=== PATIENT | female | born 1965 | race Caucasian/White ===

== ENCOUNTER 2019-04-08 12:33 | Emergency (ER) | payer MEDICARE ==
--- NOTE | 2019-04-08 13:48 | ED ---
Bite Injury/Animal - HPI Summary HPI Summary: This patient is a 53-year-old female presenting to the ED with a laceration to the middle and ring finger on the right hand from a dog bite. She states she was attempting to break up her 2 dogs that were fighting and cut a tooth between this area. Denies any crush injury. Able to move all extremities well without limitation. Denies any bruising. Minimal bleeding. Pt on coumadin. Denies this happening in the past. Laceration measures .7cm in length and is superficial. - History of Current Complaint Chief Complaint: EDAnimalBite Stated Complaint: DOG BITE HAND Time Seen by Provider: 04/08/19 12:59 Hx Obtained From: Patient Onset of Injury: Happened hours ago Type of Bite: Animal Hx of Bite: Provoked by: - fight between 2 dogs Severity Initially: Moderate Severity Currently: Moderate Pain Intensity: 5 Pain Scale Used: 0-10 Numeric Character: Abrasion/Laceration Aggravating Factor(s): Nothing Alleviating Factor(s): Nothing Associated Signs And Symptoms: Positive: Negative Animal Available for Observation: Yes Animal Control Notified: Yes - Risk Factors Infection/Sepsis Risk Factors: Negative - Allergies/Home Medications Allergies/Adverse Reactions: Allergies Allergy/AdvReac Type Severity Reaction Status Date / Time MS Vancomycin [Vancomycin] Allergy Unknown Hives Verified 04/08/19 12:38 Adhesive Tape Allergy Redness Verified 04/08/19 12:38 MS Amoxicillin [Amoxicillin] Allergy Hives Verified 04/08/19 12:38 MS Aspirin [Aspirin] Allergy Hives Verified 04/08/19 12:38 MS Erythromycin Allergy Hives Verified 04/08/19 12:38 [Erythromycin] MS Moxifloxacin [From Avelox] Allergy Hives Verified 04/08/19 12:38 MS NSAIDs [NSAIDs] Allergy Hives Verified 04/08/19 12:38 MS Sulfa Antibiotics Allergy Hives Verified 04/08/19 12:38 [Sulfa Antibiotics] Environmental/Seasonal Allergy Itchy Uncoded 04/08/19 12:38 Hayfever Watery Eyes, Sneezing, Coughing Home Medications: Home Medications Acetaminophen with Codeine [Acetaminophen-Cod #3 Tablet] 1 each PO DAILY PRN [History Confirmed 04/08/19] Albuterol 2.5MG/3ML (0.083%)* [Ventolin 2.5 MG/3 ML NEB.TRACI*] 2.5 mg INH Q4H PRN 04/08/19 [History Confirmed 04/08/19] Calcium Carbonate TAB* 1,200 mg PO DAILY 04/08/19 [History Confirmed 04/08/19] Cetirizine* [ZyrTEC 10 MG TAB*] 10 mg PO DAILY 04/08/19 [History Confirmed 04/08] Cholecalciferol CAP/TAB(NF) [Vitamin D3 CAP/TAB (NF)] 1,000 unit PO BEDTIME [History Confirmed 04/08/19] Pantoprazole TAB * [Protonix TAB*] 40 mg PO DAILY 04/08/19 [History Confirmed ] Simvastatin (NF) [Zocor (NF)] 40 mg PO DAILY 04/08/19 [History Confirmed ] Torsemide TAB* [Demadex*] 20 mg PO DAILY 04/08/19 [History Confirmed 04/08/19] PMH/Surg Hx/FS Hx/Imm Hx Previously Healthy: Yes Endocrine/Hematology History: Reports: Hx Thyroid Disease - HYPOTHYROIDSIM Denies: Hx Diabetes Cardiovascular History: Reports: Hx Congestive Heart Failure, Hx Coronary Artery Disease, Hx Hypercholesterolemia, Hx Hypertension, Hx Valvular Heart Disease - TRICUSPID VALVE AND MITRAL VALVE REPAIR, 2012, Other Cardiovascular Problems/Disorders - ASD AND VSD REPAIR AGE 15 FIRST ONE Denies: Hx Pacemaker/ICD Respiratory History: Reports: Hx Asthma - USE PRN INHALER, Hx Sleep Apnea GI History: Reports: Hx Crohn's Disease - HX OF YEARS AGO, NO PROBLEMS NOW, Hx Gastroesophageal Reflux Disease - CONTROL WITH MEDS, Other GI Disorders - 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 2003 LAPAROSCOPIC CHOLECYSTECTOMY, [facility]. 2011 LAPAROSCOPIC APPENDECTOMY, [facility]. OPEN HEART- VSB REPAIRED & TRICUSPID REPAIR (1980([facility]) & 10/2012), [facility]-STERNAL WIRES. 1998 RIGHT CARPAL TUNNEL RELEASE, [facility]. 1983 C SECTION, [facility]. 1991 BILATERAL TUBAL LIGATION, [facility]. 07/2014 LEFT SHOULDER - [place]ROS[place] [facility] [place] NEW LIGAMENT ON LEFT ANKLE ON INSIDE-OUTSIDE REPAIRED LIGAMENT 04/2015 Hx Anesthesia Reactions: No - Immunization History Date of Tetanus Vaccine: 2011 Hx Pertussis Vaccination: No Immunizations Up to Date: Yes Infectious Disease History: Yes Infectious Disease History: Denies: Traveled Outside the [place] in Last 30 Days - Social History Occupation: Employed Full-time Lives: With Family Alcohol Use: Occasionally Hx Substance Use: No Substance Use Type: Reports: None Hx Tobacco Use: Yes Smoking Status (MU): Former Smoker Type: Cigarettes Amount Used/How Often: 3 CIGARETTES PER DAY - USING CHANTIX NOW Length of Time of Smoking/Using Tobacco: 5 YEARS ON AND OFF Have You Smoked in the Last Year: Yes Review of Systems Negative: Fever, Chills, Fatigue, Skin Diaphoresis Negative: Palpitations, Chest Pain Negative: Shortness Of Breath, Cough Genitourinary: Negative Positive: no symptoms reported, see HPI Negative: Arthralgia, Myalgia Positive: Other - .7cm laceration Neurological: Negative All Other Systems Reviewed And Are Negative: Yes Physical Exam Triage Information Reviewed: Yes Vital Signs On Initial Exam: Initial Vitals Temp Pulse Resp BP Pulse Ox 97.4 F 65 15 150/95 97 04/08/19 12:36 04/08/19 12:36 04/08/19 12:36 04/08/19 12:36 04/08/19 12:36 Vital Signs Reviewed: Yes Appearance: Positive: Well-Appearing, Well-Nourished Skin: Positive: Skin Color Reflects Adequate Perfusion, Other - .7cm laceration between middle and ring finger on R hand Head/Face: Positive: Normal Head/Face Inspection Eyes: Positive: EOMI, HANNA, Conjunctiva Clear Neck: Positive: Supple, Nontender, No Lymphadenopathy Respiratory/Lung Sounds: Positive: Clear to Auscultation, Breath Sounds Present Cardiovascular: Positive: RRR, Pulses are Symmetrical in both Upper and Lower Extremities Musculoskeletal: Positive: Strength/ROM Intact Neurological: Positive: Speech Normal Psychiatric: Positive: Affect/Mood Appropriate Procedures - Sedation Patient Received Moderate/Deep Sedation with Procedure: No Diagnostics - Vital Signs Vital Signs Temp Pulse Resp BP Pulse Ox 12/27/19 13:00 97.7 F 68 16 151/80 98 04/08/19 12:36 97.4 F 65 15 150/95 97 - Laboratory Lab Statement: Any lab studies that have been ordered have been reviewed, and results considered in the medical decision making process. Bite Injury Course/Dx - Course Course Of Treatment: Patient arrives with a 0.7 cm laceration between the third and ring finger on the right hand from trying to break up a dog fight between her 2 dogs. Both are up-to-date with their vaccinations. Tetanus is up-to- date. Cleanse wound thoroughly, 2 sutures placed using 4-0 Prolene after anesthetized locally with lidocaine without epi. Gauze wrapped. Patient will have sutures removed in 5-7 days. Doxycycline twice daily 3 days given prophylactically. - Diagnoses Differential Diagnosis/HQI/PQRI: Positive: Laceration, Puncture, Superficial Infection Provider Diagnosis: Dog bite, Laceration Discharge ED - Sign-Out/Discharge Documenting (check all that apply): Patient Departure - Discharge Plan Condition: Stable Disposition: HOME Prescriptions: DOXYcycline CAP(*) [DOXYcycline 100MG CAP(*)] 100 mg PO BID #6 cap Patient Education Materials: Animal Bite (ED), Laceration (ED) Referrals: Rich Hernandez DO [Primary Care Provider] - Additional Instructions: Suture removal in 5-7 days Keep the area covered x 24 hours You may then take off bandage, wash very gently and reapply a bandage After 48 hours, you can leave open to air providing you do not stretch out your hand - as the sutures may break - Billing Disposition and Condition Condition: STABLE Disposition: Home - Attestation Statements Provider Attestation: I was available for consultation for this patient. I did not evaluate the patient or participate in any medical decision making or disposition decisions unless I am specifically named in the chart as having consulted on the patient. If I have consulted on the patient, please see my own ED note on the patient encounter. Nel Cuellar MD
[2019-04-08 14:03] VITALS: BP 133/80
== END 2019-04-08 14:02 | disposition home or self-care (01) ==
LOC: ED 12:33
DX: S61.252A Open bite of right middle finger without damage to nail, initial encounter (principal); S61.254A Open bite of right ring finger without damage to nail, initial encounter; W54.0XXA Bitten by dog, initial encounter; Y92.009 Unspecified place in unspecified non-institutional (private) residence as the place of occurrence of the external cause; E03.9 Hypothyroidism, unspecified; I11.0 Hypertensive heart disease with heart failure; I50.9 Heart failure, unspecified; I25.10 Atherosclerotic heart disease of native coronary artery without angina pectoris; E78.00 Pure hypercholesterolemia, unspecified; J45.909 Unspecified asthma, uncomplicated; K50.90 Crohn's disease, unspecified, without complications; K21.9 Gastro-esophageal reflux disease without esophagitis; F41.9 Anxiety disorder, unspecified; F32.9 Major depressive disorder, single episode, unspecified; Z87.891 Personal history of nicotine dependence; Z79.899 Other long term (current) drug therapy; Z88.0 Allergy status to penicillin; Z88.1 Allergy status to other antibiotic agents; Z88.2 Allergy status to sulfonamides; Z88.8 Allergy status to other drugs, medicaments and biological substances
CPT/HCPCS: 12001; 99282

== ENCOUNTER 2019-05-01 14:43 | Emergency (ER) | payer MEDICARE ==
--- NOTE | 2019-05-01 16:08 | ED ---
Abdominal Pain/Female - HPI Summary HPI Summary: 53 year old female presents to the ED with a chief complaint of sudden abdominal pain starting last night. Patient was taking medications when she suddenly had a severe pain in her abdomen. She also reports nausea and vomiting. She denies dysuria. Her last BM was minutes [employer]. Patient has had cholecystectomy, appendectomy, and hysterectomy. Patient is a former smoker, quitting now using Chantix. Home Medications Medication Instructions Recorded Confirmed Type Docusate CAP* [Colace Cap*] 200 mg PO DAILY 11/12/12 04/08/19 History FLUoxetine CAP* [Prozac CAP*] 40 mg PO QAM 11/12/12 04/08/19 History Multivitamins/Minerals TAB* 1 tab PO QAM 11/12/12 04/08/19 History [Theragran/minerals TAB*] Warfarin TAB(*) [Coumadin(*)] 5 mg PO DAILY 11/12/12 04/08/19 History clonazePAM TAB(*) [KlonoPIN TAB(*)] 0.5 mg PO BEDTIME PRN 11/12/12 04/08/19 History Levothyroxine TAB* [Synthroid TAB*] 50 mcg PO QAM 07/12/14 04/08/19 History Metoclopramide HCl [Reglan] 5 mg PO TID AC 07/12/14 04/08/19 History Montelukast Sodium TAB* [Singulair 10 mg PO BEDTIME 07/12/14 04/08/19 History TAB*] Spironolactone TAB* [Aldactone 50 mg PO QAM 07/12/14 04/08/19 History TAB*] Varenicline 0.5 mg Tab(Nf) 1 mg PO BID 07/12/14 04/08/19 History [Chantix] Acetaminophen with Codeine 1 each PO DAILY PRN 04/08/19 04/08/19 History [Acetaminophen-Cod #3 Tablet] Albuterol 2.5MG/3ML (0.083%)* 2.5 mg INH Q4H PRN 04/08/19 04/08/19 History [Ventolin 2.5 MG/3 ML NEB.TRACI*] Calcium Carbonate TAB* 1,200 mg PO DAILY 04/08/19 04/08/19 History Cetirizine* [ZyrTEC 10 MG TAB*] 10 mg PO DAILY 04/08/19 04/08/19 History Cholecalciferol CAP/TAB(NF) 1,000 unit PO BEDTIME 04/08/19 04/08/19 History [Vitamin D3 CAP/TAB (NF)] DOXYcycline CAP(*) [DOXYcycline 100 mg PO BID #6 cap 04/08/19 Rx 100MG CAP(*)] Pantoprazole TAB * [Protonix TAB*] 40 mg PO DAILY 04/08/19 04/08/19 History Simvastatin (NF) [Zocor (NF)] 40 mg PO DAILY 04/08/19 04/08/19 History Torsemide TAB* [Demadex*] 20 mg PO DAILY 04/08/19 04/08/19 History - History of Current Complaint Chief Complaint: EDAbdPain Stated Complaint: NAUSEA/VOMITING PER PT Time Seen by Provider: 05/01/19 15:49 Hx Obtained From: Patient ?: No Onset/Duration: Sudden Onset, Lasting Hours Timing: Constant Severity Initially: Severe Severity Currently: Moderate Pain Intensity: 6 Pain Scale Used: 0-10 Numeric Location: Diffuse Radiates: No Aggravating Factor(s): Nothing Alleviating Factor(s): Nothing Associated Signs and Symptoms: Positive: Nausea, Vomiting Allergies/Adverse Reactions: Allergies Allergy/AdvReac Type Severity Reaction Status Date / Time Adhesive Tape Allergy Redness Verified 05/01/19 14:54 amoxicillin Allergy Hives Verified 05/01/19 14:54 aspirin Allergy Hives Verified 05/01/19 14:54 erythromycin base Allergy Hives Verified 05/01/19 14:54 [From Erythrocin] moxifloxacin [From Avelox] Allergy Hives Verified 05/01/19 14:54 Sulfa (Sulfonamide Allergy Hives Verified 05/01/19 14:54 Antibiotics) vancomycin [From Vancocin] Allergy Hives Verified 05/01/19 14:54 Environmental/Seasonal Allergy Itchy Uncoded 05/01/19 14:54 Hayfever Watery Eyes, Sneezing, Coughing PMH/Surg Hx/FS Hx/Imm Hx Endocrine/Hematology History: Reports: Hx Thyroid Disease - HYPOTHYROIDSIM Denies: Hx Diabetes Cardiovascular History: Reports: Hx Congestive Heart Failure, Hx Coronary Artery Disease, Hx Hypercholesterolemia, Hx Hypertension, Hx Valvular Heart Disease - TRICUSPID VALVE AND MITRAL VALVE REPAIR, 2012, Other Cardiovascular Problems/Disorders - ASD AND VSD REPAIR AGE 15 FIRST ONE Denies: Hx Pacemaker/ICD Respiratory History: Reports: Hx Asthma - USE PRN INHALER, Hx Sleep Apnea GI History: Reports: Hx Crohn's Disease - HX OF YEARS AGO, NO PROBLEMS NOW, Hx Gastroesophageal Reflux Disease - CONTROL WITH MEDS, Other GI Disorders - 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 2003 LAPAROSCOPIC CHOLECYSTECTOMY, [facility]. 2011 LAPAROSCOPIC APPENDECTOMY, [facility]. OPEN HEART- VSB REPAIRED & TRICUSPID REPAIR (1980([facility]) & 10/2012), [facility]-STERNAL WIRES. 1998 RIGHT CARPAL TUNNEL RELEASE, [facility]. 1983 C SECTION, [facility]. 1991 BILATERAL TUBAL LIGATION, [place]. 07/2014 LEFT SHOULDER - ARTHROSCOPIC SURGERY, [facility] [place]. NEW LIGAMENT ON LEFT ANKLE ON INSIDE-OUTSIDE REPAIRED LIGAMENT 04/2015 Hx Anesthesia Reactions: No - Immunization History Date of Tetanus Vaccine: 2011 Infectious Disease History: No Infectious Disease History: Denies: Traveled Outside the [place] in Last 30 Days - Social History Alcohol Use: None Hx Substance Use: No Substance Use Type: Reports: None Hx Tobacco Use: Yes Smoking Status (MU): Former Smoker Type: Cigarettes Amount Used/How Often: 3 CIGARETTES PER DAY - USING CHANTIX NOW Length of Time of Smoking/Using Tobacco: 5 YEARS ON AND OFF Have You Smoked in the Last Year: Yes Review of Systems Negative: Fever Positive: Abdominal Pain, Vomiting, Nausea Negative: dysuria All Other Systems Reviewed And Are Negative: Yes Physical Exam - Summary Physical Exam Summary: Appearance: The patient is well-nourished in no acute distress and in no acute pain. Skin: The skin is warm and dry, and skin color reflects adequate perfusion. HEENT: The head is normocephalic and atraumatic. The pupils are equal and reactive. The conjunctivae are clear and without drainage. Nares are patent and without drainage. Mouth reveals moist mucous membranes, and the throat is without erythema and exudate. The external ears are intact. The ear canals are patent and without drainage. The tympanic membranes are intact. Neck: The neck is supple with full range of motion and non-tender. There are no carotid bruits. There is no neck vein distension. Respiratory: Chest is non-tender. Lungs are clear to auscultation and breath sounds are symmetrical and equal. Cardiovascular: Heart is regular rate and rhythm. There is no murmur or rub auscultated. There is no peripheral edema and pulses are symmetrical and equal. Abdomen: The abdomen is soft. There are normal bowel sounds heard in all four quadrants and there is no organomegaly palpated. Epigastric tenderness. Musculoskeletal: There is no back tenderness noted. Extremities are non-tender with full range of motion. There is good capillary refill. There is no peripheral edema or calf tenderness elicited. Neurological: Patient is alert and oriented to person, place and time. The patient has symmetrical motor strength in all four extremities. Cranial nerves are grossly intact. Deep tendon reflexes are symmetrical and equal in all four extremities. Psychiatric: The patient has an appropriate affect and does not exhibit any anxiety or depression. Triage Information Reviewed: Yes Vital Signs On Initial Exam: Initial Vitals Temp Pulse Resp BP Pulse Ox 97.0 F 69 16 120/78 96 05/01/19 14:43 05/01/19 14:43 05/01/19 14:43 05/01/19 14:43 05/01/19 14:43 Vital Signs Reviewed: Yes Procedures - Sedation Patient Received Moderate/Deep Sedation with Procedure: No Diagnostics - Vital Signs Vital Signs Temp Pulse Resp BP Pulse Ox 05/01/19 14:43 97.0 F 69 16 120/78 96 - Laboratory Result Diagrams: 05/01/19 17:14 05/01/19 17:14 Lab Statement: Any lab studies that have been ordered have been reviewed, and results considered in the medical decision making process. - EKG 1512 Cardiac Rate: NL - 67 bpm EKG Rhythm: Sinus Rhythm Ectopy: None EKG Comparison: No Significant Change Summary of EKG Findings: EKG at 1512 shows normal sinus rhythm at 67 bpm. No significant change from 06/07/13. An ED physician has reviewed and interpreted this report. Abdominal Pain Fem Course/Dx - Course Course Of Treatment: Ms. Lopez presented with the fairly sudden onset of epigastric pain this morning. She is class II obese and is status post cholecystectomy, appendicitis and hysterectomy. Labs did show a leukocytosis of 15,000 with a negative urine. CT scan was unremarkable for acute pathology. She was given IV Protonix and got significant relief of her pain. I will treat her with twice a day Prilosec and close follow-up with her PCP. - Diagnoses Provider Diagnoses: Epigastric pain Discharge ED - Sign-Out/Discharge Documenting (check all that apply): Patient Departure - discharge home - Discharge Plan Condition: Stable Disposition: HOME Patient Education Materials: Epigastric Pain (ED) Referrals: Rich Hernandez, DO [Primary Care Provider] - Additional Instructions: Follow up with your primary care provider within 7 days. Return to the ED if you experience new or worsened symptoms. - Billing Disposition and Condition Condition: STABLE Disposition: Home - Attestation Statements Document Initiated by Scribe: Yes Documenting Scribe: Kam Walsh Provider For Whom Scribe is Documenting (Include Credential): Harish Valderrama MD Scribe Attestation: Kam Engel, scribed for Harish Valderrama MD on 05/01/19 at 1853. Scribe Documentation Reviewed: Yes Provider Attestation: The documentation as recorded by the Kam blanca accurately reflects the service I personally performed and the decisions made by Harish bunn MD Status of Scribe Document: Viewed
[2019-05-01] MEDS ORDERED: NS 0.9% 1000 ML** 1,000 ML IV ONE ×2 (16:10→18:03)
[2019-05-01] MEDS ORDERED: Pantoprazole IV* 40 MG IV ONE (16:10)
[2019-05-01 17:20] LABS: Hematocrit 42 % (35-47); Hemoglobin 13.8 g/dL (12.0-16.0); Mean Corpuscular HGB Conc 33 g/dL (31-36); Mean Corpuscular Hemoglobin 28 pg (27-31); Mean Corpuscular Volume 85 fL (80-97); Mean Platelet Volume 8.6 fL (7.4-10.4); Platelet Count 209 10^3/uL (150-450); Red Blood Count 4.94 10^6 /uL (3.70-4.87); Red Cell Distribution Width 16 % (10-15); White Blood Count 17.2 10^3/uL (3.5-10.8)
[2019-05-01 17:38] LABS: Albumin 4.1 g/dL (3.2-5.2); Albumin/Globulin Ratio 1.7 (1-3); BUN/Creatinine Ratio 22.3 (8-20); C Reactive Protein 47.35 mg/L (<8.01); Calcium 9.5 mg/dL (8.6-10.3); EGFR African American 67.6 (>60); EGFR Non-African American 55.8 (>60); Globulin 2.4 g/dL (2-4); Total Bilirubin 0.7 mg/dL (0.2-1.0); Total Protein 6.5 g/dL (6.4-8.9)
[2019-05-01 18:06] LABS: ABS Lymphocytes 0.8 10^3/ul (1.0-4.8); ABS Monocytes 0.5 10^3/ul (0-0.8); ABS Neutrophils 15.8 10^3/ul (1.5-7.7); Eosinophil % 0.1 %; Lymphocyte % 4.8 %
[2019-05-01 18:38] LABS: Urine Appearance Clear; Urine Bilirubin Negative (Negative); Urine Blood Negative (Negative); Urine Color Amber; Urine Glucose Negative (Negative); Urine Ketones Trace (Negative); Urine Nitrite Negative (Negative); Urine Protein Negative (Negative); Urine Urobilinogen Positive (Negative)
[2019-05-01] MEDS ORDERED: Pantoprazole TAB * 40 MG TAB PO ONE (18:56)
[2019-05-01] MEDS ORDERED: HYDROcodone/ACETAMIN 5-325 MG* 1 TAB PO ONE (18:56)
[2019-05-01 19:16] VITALS: BP 129/71
== END 2019-05-01 19:14 | disposition home or self-care (01) ==
LOC: ED 14:43
DX: R10.13 Epigastric pain (principal); K44.9 Diaphragmatic hernia without obstruction or gangrene; N28.1 Cyst of kidney, acquired; E03.9 Hypothyroidism, unspecified; I11.0 Hypertensive heart disease with heart failure; I50.9 Heart failure, unspecified; I25.10 Atherosclerotic heart disease of native coronary artery without angina pectoris; E78.00 Pure hypercholesterolemia, unspecified; J45.909 Unspecified asthma, uncomplicated; K50.90 Crohn's disease, unspecified, without complications; K21.9 Gastro-esophageal reflux disease without esophagitis; F41.9 Anxiety disorder, unspecified; F32.9 Major depressive disorder, single episode, unspecified; Z90.710 Acquired absence of both cervix and uterus; Z95.2 Presence of prosthetic heart valve; Z98.51 Tubal ligation status; Z87.891 Personal history of nicotine dependence; Z90.49 Acquired absence of other specified parts of digestive tract; Z90.89 Acquired absence of other organs; Z79.01 Long term (current) use of anticoagulants; Z79.890 Hormone replacement therapy; Z79.899 Other long term (current) drug therapy; Z88.0 Allergy status to penicillin; Z88.1 Allergy status to other antibiotic agents; Z88.2 Allergy status to sulfonamides; Z88.8 Allergy status to other drugs, medicaments and biological substances
CPT/HCPCS: 36415; 74176; 80053; 81003; 83605; 83690; 85025; 86140; 93005; 96361; 96374; 99283; A9270-GY

== ENCOUNTER 2020-01-09 05:37 | Observation (INO) ==
[2020-01-09] MEDS ORDERED: Buffered Lidocaine 1% SYRIN 1 ml INTRADERM ONE (06:00)
[2020-01-09] MEDS ORDERED: Famotidine IV 10 MG/ML 2 ml VIAL (20 mg) IV ONE (06:00)
[2020-01-09] MEDS ORDERED: Lactated Ringers 1000 ml BAG 1,000 ML IV SCH (06:00)
[2020-01-09] MEDS ORDERED: Famotidine IV 10 MG/ML 2 ml VIAL (20 mg) ONE (06:28)
[2020-01-09] MEDS ORDERED: ceFAZolin 2 GM PREMIX 2 GM/50 ML BAG ONE (06:57)
[2020-01-09] MEDS ORDERED: ceFAZolin 1 GM ADVAN 1 GM ADDV.VIAL IVPB ONE (06:57)
[2020-01-09] MEDS ORDERED: Bupivacaine 0.5% SDV PF 30ML VIAL ONE (07:04)
[2020-01-09] MEDS ORDERED: Ondansetron 4 mg VIAL 2 MG/ML 2 ml VIAL ONE (07:05)
[2020-01-09] MEDS ORDERED: fentaNYL 100 mcg/2 ml 50 MCG/ML VIAL ONE ×2 (07:05→11:31)
[2020-01-09] MEDS ORDERED: Dexamethasone IV 4 MG/ML VIAL 1 ml VIAL ONE (07:05)
[2020-01-09] MEDS ORDERED: ROPIVACAINE 5 MG/ML 30 ML BTL (0.5%) ONE (07:05)
[2020-01-09] MEDS ORDERED: Lidocaine 2% PF 5 ML VIAL ONE (07:05)
[2020-01-09] MEDS ORDERED: Propofol 10 MG/ML 20 ML BTL ONE (07:05)
[2020-01-09] MEDS ORDERED: Ketamine HCL 50 mg/ml 10 ml VIAL (500 MG) ONE (07:06)
[2020-01-09] MEDS ORDERED: Midazolam 10 mg/10 ml VIAL 1 mg/ml 10 ml VIAL (10 mg) ONE (07:06)
[2020-01-09 07:47] LABS: Activated Partial Thrombo Time 41.6 seconds (26.0-38.0); INR 1.06 (0.82-1.09)
[2020-01-09] MEDS ORDERED: Rocuronium 50 mg VIAL 10 mg/ml 5 ml VIAL (50 mg) ONE (08:20)
[2020-01-09] MEDS ORDERED: fentaNYL 250 mcg/5 ml 50 MCG/ML 5 ml VIAL (250 MCG) ONE (08:21)
[2020-01-09] MEDS ORDERED: Phenylephrine 40 mcg/mL 10mL (400mcg) SYRINGE ONE (08:45)
[2020-01-09] MEDS ORDERED: Vancomycin 1,000 MG VIAL ONE (08:56)
[2020-01-09] MEDS ORDERED: Acetaminophen IV 1 GM/100ML 100 ML ONE (09:33)
[2020-01-09] MEDS ORDERED: HYDROmorphone 1 MG/1 ML SYRINGE ONE (10:22)
[2020-01-09] MEDS ORDERED: HYDROmorphone 1 MG/1 ML SYRINGE IV PRN (10:48)
[2020-01-09] MEDS ORDERED: fentaNYL 100 mcg/2 ml 50 MCG/ML VIAL IV PRN (10:48)
[2020-01-09] MEDS ORDERED: Naloxone 0.4 mg VIAL 0.4 mg/ml 1 ml VIAL IV PRN (10:48)
[2020-01-09] MEDS ORDERED: Ondansetron 4 mg VIAL 2 MG/ML 2 ml VIAL IV PRN ×2 (10:48→11:13)
[2020-01-09] MEDS ORDERED: diPHENhydraMINE 25 mg TAB PO PRN (11:13)
[2020-01-09] MEDS ORDERED: Ondansetron ODT 4 mg TAB 4 MG TAB PO PRN (11:13)
[2020-01-09] MEDS ORDERED: Magnesium Hydroxide LIQ 30 ML UDC PO PRN (11:13)
[2020-01-09] MEDS ORDERED: diPHENhydraMINE IV 50 MG/ML 1 ml VIAL (BENADRYL) IV PRN (11:13)
[2020-01-09] MEDS ORDERED: Lactulose 30 ml UDC PO PRN (11:13)
[2020-01-09] MEDS ORDERED: Morphine 2 MG/ML SYRINGE IV PRN (11:22)
[2020-01-09] MEDS ORDERED: ALBUTEROL INH PRN (11:29)
[2020-01-09] MEDS: D5W 1/2 NS 1000 ml BAG 1,000 ML IV SCH ×2 (12:31→23:08)
[2020-01-09] MEDS ORDERED: Albuterol HFA INHALER 8 gm MDI INH PRN (13:11)
[2020-01-09] MEDS ORDERED: Mometasone/Formoter 200/5 MDI INH PRN (13:17)
[2020-01-09] MEDS: ceFAZolin 1 GM ADVAN 1 GM in NS 0.9% 50 ML 50 ML IVPB SCH ×2 (15:42→23:09)
[2020-01-09] MEDS: Acetaminop/Codeine 300mg/30mg TAB PO PRN ×2 (15:42→23:05)
[2020-01-09] MEDS ORDERED: Warfarin DAILY REMINDER **NOTE FOLLOW UP SCH (17:00)
[2020-01-09] MEDS: Magnesium Hydroxide LIQ 30 ML UDC PO SCH (20:50)
[2020-01-09] MEDS ORDERED: Calcium Carb 1250 mg TAB (500 mg elemental calcium) PO SCH ×2 (21:00)
[2020-01-10] MEDS: Acetaminop/Codeine 300mg/30mg TAB PO PRN (06:14)
[2020-01-10 06:25] LABS: Hematocrit 27 % (35-47); Hemoglobin 8.7 g/dL (12.0-16.0); Mean Platelet Volume 8.8 fL (7.4-10.4); Platelet Count 182 10^3/uL (150-450)
[2020-01-10 06:32] LABS: INR 1.16 (0.82-1.09)
[2020-01-10 06:39] LABS: BUN/Creatinine Ratio 17.7 (8-20); Calcium 8.1 mg/dL (8.6-10.3); EGFR African American 120.9 (>60); EGFR Non-African American 99.9 (>60); Potassium 3.7 mmol/L (3.5-5.0)
[2020-01-10] MEDS: ceFAZolin 1 GM ADVAN 1 GM in NS 0.9% 50 ML 50 ML IVPB SCH (08:06)
[2020-01-10] MEDS: Magnesium Hydroxide LIQ 30 ML UDC PO SCH (08:47)
[2020-01-10] MEDS ORDERED: Vitamin THERAPEUTIC TAB PO SCH (09:00)
[2020-01-10] MEDS ORDERED: Multivitamins/Minerals TAB PO SCH (09:00)
[2020-01-10] MEDS ORDERED: Enoxaparin 40 MG/0.4 ML SYR SUBCUT SCH (09:00)
[2020-01-10 12:05] VITALS: BP 153/76
== END 2020-01-10 14:00 | disposition home or self-care (01) ==
LOC: OR 05:37 → SSU 05:37
PROVIDERS: ADMIT Physician Assistant; ATTEND Orthopaedic Surgery